=== PATIENT | male | born 1960 ===

== ENCOUNTER 2022-03-30 02:30 | Emergency (ER) | payer MEDICAID, SELFPAY ==
[2022-03-30 02:56] VITALS: BP 110/74; PULSE 79; RESP 20; TEMP 36.4; O2SAT 97; BMI 22.0
== END 2022-03-30 08:26 | disposition left against medical advice (07) ==
PROVIDERS: Emergency Provider Emergency Medicine
DX: M54.2 Cervicalgia (principal)
CPT/HCPCS: 99281